=== PATIENT | female | born 1960 | race Caucasian/White ===

== ENCOUNTER 2018-04-16 05:00 | Inpatient (IN) | payer BC ==
[2018-04-14 15:08] VITALS: BMI 29.8
--- NOTE | 2018-04-16 06:51 | HP ---
History & Physical Update - History History: No Change - Physical Physical: No Change - Assessment Assessment: No Change - Plan Plan: No Change (No change in HP done)
[2018-04-16] MEDS ORDERED: LACTATED RINGERS SOLUTION 1,000 ML/1,000 ML INFUS.BAG IV SCH (07:00)
[2018-04-16] MEDS ORDERED: PHENAZOPYRIDINE HCL 100 MG TABLET (FP) PO STA (08:31)
[2018-04-16] MEDS ORDERED: ceFAZolin SODIUM 1 GM VIAL ONE ×2 (09:14→18:02)
[2018-04-16] MEDS ORDERED: BUPIVACAINE HCL/PF 0.5% (5MG/ML) 10 ML VIAL ONE (10:06)
[2018-04-16] MEDS ORDERED: ONDANSETRON 4 MG/2 ML VIAL IVPUSH PRN ×2 (10:12→13:38)
[2018-04-16] MEDS ORDERED: LACTATED RINGERS SOLUTION 1,000 ML IV SCH (10:15)
[2018-04-16] MEDS ORDERED: PHENAZOPYRIDINE HCL 100 MG TABLET (FP) ONE (10:46)
[2018-04-16] MEDS ORDERED: ceFAZolin SODIUM 1 GM VIAL IVPB ONE (11:08)
[2018-04-16] MEDS ORDERED: BUPIVACAINE HCL/PF 0.5% (5MG/ML) 10 ML VIAL IJ ONE (13:15)
[2018-04-16] MEDS ORDERED: BISACODYL 10 MG SUPP.RECT RC PRN (13:38)
--- NOTE | 2018-04-16 13:43 | OP ---
DATE OF OPERATION: 04/16/2018 PREOPERATIVE DIAGNOSES: Leiomyomatous uterus, pelvic pain, and adenomyosis. OPERATION: Laparoscopic, robotic total hysterectomy and bilateral salpingectomy. SURGEON: Esau Grant MD SURVEYOR INSTRUMENT ASSISTANT: AGATHA Valdez ANESTHESIA: General. ANESTHESIOLOGIST: Wilner Bone MD FINDINGS: Leiomyomatous uterus, approximately 12 cm in size. Bilateral ureters seen post surgery. PROCEDURE: Patient was taken to the operating room and placed in dorsal lithotomy position, prepped and draped in the usual sterile fashion. Timeout was performed in accordance with hospital regulation. Speculum was placed in the vagina. Chang catheter was inserted into the urethra, and tenaculum was placed on the anterior lip of the cervix. Cervix was then dilated to accommodate the uterine manipulator. A large uterine manipulator was inserted. Attention was then drawn to the umbilicus where an 8-mm umbilical incision was made. Veress needle was inserted into the cavity. Approximately 3-4 L of CO2 was insufflated in the cavity. Veress needle was then removed, and an 8-mm trocar was then inserted. Laparoscope and camera were then attached. Visualization revealed a leiomyomatous uterus, normal tubes, and normal ovaries and uterus approximately 12 cm in size. Two trocars were placed on the left parallel to the umbilical incision, and 8-mm incisions were made. Trocars were inserted under direct visualization. An AirSeal cannula was inserted in the upper abdomen, and under direct visualization, 2 trocars were placed on the right parallel to each other, 8 mm in size, and 8-mm trocars were then inserted under direct visualization. The trocars were then confirmed in terms of location. The da Herrera robot was then side docked to the patient's side arm, and trocars were then inserted onto the da Herrera robot. Placement was confirmed, and instruments were then placed under direct visualization. Vessel sealers were placed on the left, and tenaculum and EndoShears were placed on the right. Control of the da Herrera robot was then done at the console, and tenaculum was then used to elevate the uterus to the right side. The round ligament was identified and clamped and cut. Utero-ovarian ligaments identified and clamped and cut. Tubes were bilaterally clamped and cut. Vesicouterine reflection was then entered, and bladder was bluntly dissected out of the operative field. The same procedure was repeated on the other side. EndoShears were then used to cut the vagina away from the cervix circumferentially. All bleeding was clamped. Ureters were identified and found to have peristalsis. The uterus was then removed from the vagina and cervix, and tubes were all removed from the vagina. The 2-0 V-Loc suture was then introduced into the abdomen, and robot was then used to continue suture using the V-Loc suture, closing the vagina. Ureters were then identified and found to have peristalsis. Ovaries were noted to be normal. Hemostasis was achieved. Needle was then removed from the abdomen. Trocars were then removed. Incisions were then closed using 4-0 Biosyn suture in subcuticular fashion. Wound was washed and dressed. Patient tolerated the procedure well. Estimated blood loss: 75 mL. Pad count was noted to be normal. Abdominal sweep done. ESAU GRANT M.D. [id number]
--- NOTE | 2018-04-16 13:49 | OP ---
Operative Note - Note: Operative Date: 04/16/18 Pre-Operative Diagnosis: uterine leiomyoma Operation: robotic assisted totaly hysterctomy and bilateral salpingectomy Surgeon: Deyanira Singh Knifer Up: Stacy Chavez Anesthesiologist/BUSINESS EXECUTIVE: Grant Biggs Anesthesia: General Specimens Removed: uterus, bilateral salpingectomy Estimated Blood Loss (mls): 75 Drains, Volume Out (mls): 700 (trotter) Fluid Volume Replaced (mls): 1,400 Operative Report Dictated: Yes
--- NOTE | 2018-04-16 13:50 | SURG ---
Surgery Tiler Note Tiler: Stacy Chavez PA-C Date of Service: 04/16/18 Diagnosis: uterine leimyoma Procedure: robotic assisted total hysterectomy with bilateral salpingectomy I was present for the entirety of the operative procedure. For further detail, please refer to operative report. Visit type - Case Type Case Type: Scheduled - Emergency Emergency Visit: No - New patient This patient is new to me today: Yes Date on this admission: 04/16/18
[2018-04-16] MEDS ORDERED: CEFAZOLIN 1 GM/D5W 1 GM/50 ML BAG IVPB SCH (18:00)
[2018-04-16] MEDS ORDERED: DEXTROSE 5%-WATER - 50 ML IVPB ONE (18:02)
[2018-04-16] MEDS: CEFAZOLIN 1 GM in DEXTROSE 5%-WATER - 50 ML IVPB SCH (18:06)
[2018-04-16 20:51] LABS: ANION GAP 12 (8-16); BLOOD UREA NITROGEN 12 mg/dL (7-18); CALCIUM 8.8 mg/dL (8.5-10.1); CHLORIDE 106 mmol/L (98-107); CO2 24 mmol/L (21-32); CREATININE 0.8 mg/dL (0.55-1.02); GLUCOSE,RANDOM 169 mg/dL (74-106); POTASSIUM 4.2 mmol/L (3.5-5.1); SODIUM 142 mmol/L (136-145)
[2018-04-16 21:39] LABS: BASO % 0.1 % (0-2.0); HEMATOCRIT 35.8 % (32.4-45.2); HEMOGLOBIN 12.2 GM/dL (10.7-15.3); LYMPH % 6.4 % (8-40); MCH 28.7 pg (25.7-33.7); MCHC 34.2 g/dl (32.0-36.0); MEAN CELL VOLUME 84.1 fl (80-96); MEAN PLT VOLUME 9.3 fl (7.5-11.1); MONO % 1.9 % (3.8-10.2); NEUT % 91.6 % (42.8-82.8); PLATELET COUNT 255 K/MM3 (134-434); RBC 4.25 M/mm3 (3.60-5.2); RDW 13.5 % (11.6-15.6); WHITE BLOOD COUNT 11.3 K/mm3 (4.0-10.0)
[2018-04-16] MEDS: IBUPROFEN 800 MG/8 ML IJ IVPB PRN (21:59)
[2018-04-16] MEDS: DOCUSATE SODIUM 100 MG CAPSULE (FP) PO SCH (22:00)
[2018-04-16] MEDS: SIMETHICONE 80 MG TAB.CHEW (FP) PO PRN (22:01)
[2018-04-16 22:03] LABS: PLATELET ESTIMATE ADEQUATE
[2018-04-17] MEDS ORDERED: DEXTROSE 5%-WATER - 50 ML IVPB ONE (01:20)
[2018-04-17] MEDS ORDERED: ceFAZolin SODIUM 1 GM VIAL ONE (01:21)
[2018-04-17] MEDS: CEFAZOLIN 1 GM in DEXTROSE 5%-WATER - 50 ML IVPB SCH (01:23)
[2018-04-17 07:53] LABS: BASO % 0.2 % (0-2.0); EOS % 0.1 % (0-4.5); HEMOGLOBIN 11.5 GM/dL (10.7-15.3); LYMPH % 13.9 % (8-40); MCH 28.9 pg (25.7-33.7); MCHC 33.8 g/dl (32.0-36.0); MEAN CELL VOLUME 85.5 fl (80-96); MEAN PLT VOLUME 8.8 fl (7.5-11.1); MONO % 7.2 % (3.8-10.2); NEUT % 78.6 % (42.8-82.8); PLATELET COUNT 248 K/MM3 (134-434); RBC 3.98 M/mm3 (3.60-5.2); RDW 13.8 % (11.6-15.6); WHITE BLOOD COUNT 10.5 K/mm3 (4.0-10.0)
--- NOTE | 2018-04-17 08:14 | PN ---
Progress Note (short form) - Note Progress Note: POD#1 Pt had an episode last pm where she felt nauseated/tingling in her extremities and warm. The feeling passed in about 30 minutes and was better after getting IV fluids. This am she is tolerating a diet, small amount of flatus passed. No CP/SOB. Slight lower abd pain and scant bleeding on the vaginal pad. Vital Signs Period Temp Pulse Resp BP Sys/Landeros Pulse Ox Last 24 Hr 97.6 F-98.6 F 60-77 16-20 105-131/47-79 98-100 UOP-1500ml orange in color GEN: Appears comfortable CV:RRR Lungs: CTA b/l ABD: soft, non-distended, inc tenderness. Inc c/d/i with bandaids. LE: no calf tenderess or swelling noted b/l. Ye/SCDS in place. 5/5 dorsi/ plantar/EHL b/l CBC, BMP // 07:00 Laboratory Tests 04/16/18 19:35 Sodium 142 Potassium 4.2 Chloride 106 Carbon Dioxide 24 Anion Gap 12 BUN 12 Creatinine 0.8 Random Glucose 169 H A/P: 58 yo female s/p robotic assisted total hysterectomy/b/l salpingectomy, POD #1 Plan for possible discharge today Diet advance trotter catheter for removal this am, TOV DVT ppx with YE/SCDS/ambulation/lovenox SQ D/w Dr. Singh and plan for discharge today if she continues to tolerated her diet/pain managed and voiding
[2018-04-17 08:23] LABS: CHLORIDE 107 mmol/L (98-107); POTASSIUM 4.7 mmol/L (3.5-5.1); SODIUM 143 mmol/L (136-145)
[2018-04-17 08:30] LABS: ANION GAP 9 (8-16); BLOOD UREA NITROGEN 11 mg/dL (7-18); CALCIUM 8.9 mg/dL (8.5-10.1); CO2 27 mmol/L (21-32); CREATININE 0.7 mg/dL (0.55-1.02); GLUCOSE,RANDOM 116 mg/dL (74-106)
[2018-04-17] MEDS ORDERED: oxyCODONE HCL 5 MG TABLET PO PRN (08:30)
[2018-04-17] MEDS: SIMETHICONE 80 MG TAB.CHEW (FP) PO PRN ×2 (09:39→21:21)
[2018-04-17] MEDS: ENOXAPARIN NA (PORCINE) 40 MG/0.4 ML DISP.SYRIN SQ SCH (09:39)
[2018-04-17] MEDS: DOCUSATE SODIUM 100 MG CAPSULE (FP) PO SCH ×2 (09:39→21:21)
[2018-04-17] MEDS: IBUPROFEN 800 MG/8 ML IJ IVPB PRN (13:48)
--- NOTE | 2018-04-17 16:30 | PN ---
Progress Note (short form) - Note Progress Note: Pt unable to pass gas pt with abdominal pain and unable to go home rectal tube dulcolax given will admit bc pt could not go home
[2018-04-17] MEDS: ACETAMINOPHEN 325 MG TABLET (FP) PO PRN (21:20)
[2018-04-17] MEDS: oxyCODONE HCL 5 MG TABLET PO PRN (21:21)
[2018-04-18] MEDS: oxyCODONE HCL 5 MG TABLET PO PRN (07:35)
[2018-04-18] MEDS: SIMETHICONE 80 MG TAB.CHEW (FP) PO PRN (07:35)
[2018-04-18] MEDS: ACETAMINOPHEN 325 MG TABLET (FP) PO PRN (07:36)
[2018-04-18] MEDS: ENOXAPARIN NA (PORCINE) 40 MG/0.4 ML DISP.SYRIN SQ SCH (09:35)
[2018-04-18] MEDS: DOCUSATE SODIUM 100 MG CAPSULE (FP) PO SCH (09:35)
--- NOTE | 2018-04-18 09:53 | DS ---
"Physical Exam-LEARNING SUPPORT TEACHER Vital Signs: Vital Signs Temperature 98.3 F 04/17/18 22:00 Pulse Rate 79 04/17/18 22:00 Respiratory Rate 18 04/17/18 22:00 Blood Pressure 131/59 04/17/18 22:00 O2 Sat by Pulse Oximetry (%) 100 04/17/18 07:00 Constitutional: Yes: Well Nourished, No Distress Cardiovascular: Yes: WNL Respiratory: Yes: WNL, Regular Gastrointestinal: Yes: WNL, Normal Bowel Sounds, Soft Edema: No Wound/Incision: Yes: Dressing Removed Labs: CBC, BMP 04/17/18 07:00 04/17/18 07:00 Discharge Summary Reason For Visit: LEIOMYOMA OF UTERUS Procedures: Principal: Robotic Laparoscopic total hyterectomy Condition: Good - Instructions Diet, Activity, Other Instructions: Dr. Deyanira Singh Grease Refiner Operator discharge instructions Physical activity Resume your normal everyday activity as tolerated no heavy lifting or exercise until seen by your surgeon. You may walk unlimited kate of and climb stairs. You may resume driving the car when you feel safe and comfortable behind the wheel. No sexual activity as instructed by Dr. Singh. Wound care If you have a bandage, leave it on, and keep dry for 48-72 hours. After that time discard the outer bandage. If they are tapes on the skin under the out of bandage leave them in place. They will peel off in the next 7 to 10 days. Do Not Peel them off. You may shower the day after surgery. If there are tapes present on the skin, you may shower over them. Diet There are no dietary restrictions. Eat healthy, high-fiber foods. Drink 6 to 8 glasses of liquid each day. This will assist in keeping your bowels are regular. Pain management You may take Tylenol or acetaminophen or Ibuprofen (for example, Motrin, Advil etc.) from my pain prescription medication is ordered should be taken as prescribed for moderate to severe pain. Call Dr. Singh for any of the following: Severe pain not relieved by medication Fever of 101 or higher Excessive bleeding or drainage on dressing Inability to urinate Call the office at [phone] for an appointment in seven days. This report was requested by: Stacy Chavez | Reference #: [id number] - Home Medications Comprehensive Discharge Medication List: Ambulatory Orders Docusate Sodium [Colace -] 100 mg PO BID PRN #14 capsule 04/17/18 Oxycodone HCl/Acetaminophen [Percocet 5-325 mg Tablet] 1 - 2 tab PO Q6H PRN #30 tab MDD 8 04/17/18"
[2018-04-18 10:48] VITALS: BP 115/61; PULSE 69; TEMP 97.7
--- NOTE | 2018-04-20 16:19 | PATH ---
Surgical Pathology Report Patient Name: KEITH ALCAZAR [facility]. Rec. #: [id number] /Age/Gender: 1960 (Age: 58) / F Account: [id number] Location: [facility] OBS/CORRECTIONS SERGEANT Taken: 04/16/2018 Received: 04/16/2018 Reported: 04/20/2018 Physicians: Deyanira Singh M.D. Specimen(s) Received A: UTERUS AND CERVIX B: RIGHT FALLOPIAN TUBE C: LEFT FALLOPIAN TUBE Clinical History Leiomyoma of uterus Final Diagnosis A. UTERUS AND CERVIX, ROBOTIC ASSISTED LAPAROSCOPIC TOTAL HYSTERECTOMY: PROLIFERATIVE ENDOMETRIUM. INTRAMURAL AND SUBSEROSAL LEIOMYOMA(TA), FOCALLY HYALINIZED AND CALCIFIED. CERVIX WITHOUT SIGNIFICANT PATHOLOGIC FINDINGS. B. FALLOPIAN TUBE, RIGHT, SALPINGECTOMY: FIMBRIATED END OF FALLOPIAN TUBE WITH PARATUBAL CYST. NO FULL LUMINAL PORTION IDENTIFIED. C. FALLOPIAN TUBE, LEFT, SALPINGECTOMY: FALLOPIAN TUBE WITH PARATUBAL CYSTS (FIMBRIATED END AND FULL LUMINAL PORTION). Electronically Signed Cathleen Barnes M.D. Gross Description A. Received in formalin labeled "uterus, cervix," is a 253 g uterus with an attached cervix and no attached adnexa. The specimen measures 12.5 cm from superior to inferior, 7 cm from left to right and 7 cm from anterior to posterior. The serosa is bull-adame with focal bulging subserosal nodules. The attached cervix measures 4 cm in length and averages 3.1 cm in diameter. The ectocervix is bull-pink, smooth and glistening. The endocervix is unremarkable. The endometrial cavity measures 4.5 cm in length and 2.4 cm from cornu to cornu. The endometrium is bull-brown and averages 0.1 cm in thickness. The myometrium displays multiple intramural nodules, measuring up to 6.7 cm in greatest dimension. The cut surface of the subserosal and largest intramural nodules is focally calcified. The remaining intramural nodules are bull and rubbery with whorled architecture. No areas of hemorrhage or necrosis are identified. The remaining myometrium is bull-pink and measures up to 4 cm in thickness. Sole Cutter sections are submitted in 11 cassettes a follows: 1-anterior cervix; 2-posterior cervix; 8-8-acuxuqwo endomyometrium; 6-3-oijulkvcl endomyometrium; 7-calcified subserosal nodules, following decalcification; 8-9-largest intramural nodule, following decalcification; 82-98-yprdrbmiku intramural nodules. B. Received in formalin labeled "right fallopian tube," is a 1.7 x 1.2 x 0.6 cm portion of bull-mckeon fimbria. No fallopian tube lumen is identified. The fimbria is bisected and entirely submitted in one cassette. C. Received in formalin labeled "left fallopian tube," is a 1.7 x 1.1 x 0.6 cm portion of bull-mckeon fimbria. No fallopian tube lumen is identified. The fimbria is bisected and entirely submitted in one cassette. 04/17/2018 [facility]04/17/2018
== END 2018-04-18 10:30 | disposition home or self-care (01) | DRG 743 ==
LOC: JASUSAT 05:00 → J3W 15:57 → JASUSAT 15:58 → J3W 15:58
PROVIDERS: ADMIT Obstetrics & Gynecology; ATTEND Obstetrics & Gynecology
PROC: 0UT74ZZ Resection of Bilateral Fallopian Tubes, Percutaneous Endoscopic Approach (ICD-10-PCS; 2018-04-16)
PROC: 8E0W8CZ Robotic Assisted Procedure of Trunk Region, Via Natural or Artificial Opening Endoscopic (ICD-10-PCS; 2018-04-16)
PROC: 0UT94ZZ Resection of Uterus, Percutaneous Endoscopic Approach (ICD-10-PCS; principal; 2018-04-16 10:00)
DX: D25.9 Leiomyoma of uterus, unspecified (principal); N80.0 Endometriosis of uterus
CPT/HCPCS: 36415; 80048; 85025; 86850; 86900; 86901; 88302-TC; 88307-TC; 94010; 94760

== ENCOUNTER 2020-03-29 06:10 | Day surgery (SDC) | payer OTHER ==
[2020-03-28 11:10] VITALS: BMI 26.6
--- NOTE | 2020-03-28 14:11 | HP ---
Satellite [facility] - Chief Complaint Chief Complaint: left knee pain - Past Medical History Allergies/Adverse Reactions: Allergies Allergy/AdvReac Type Severity Reaction Status Date / Time No Known Allergies Allergy Verified 03/28/20 11:02 - Current Medications Current Medications: Home Medications Medication Instructions Recorded Acetaminophen [Tylenol] 650 mg PO PRN 03/28/20 Omeprazole 40 mg PO DAILY 03/28/20 Satellite Physical Exam - Physical Examination General Appearance: Well Nourished, Well Developed, Alert & Oriented x3 ENT: Clear Lung: Normal air movement Extremities: Other (left knee- + swelling, + ttp, decr rom, + mcmurrays, nvi) Neurological: Intact, Alert, Oriented Satellite Impression/Plan - Impression/Plan Impression: left knee internal derangement Operative Procedure: left knee arthroscopy Date to be Performed: 03/29/20
[2020-03-29] MEDS ORDERED: LIDOCAINE HCL/PF 2% SDV 5ML VIAL ONE (07:35)
[2020-03-29] MEDS ORDERED: MIDAZOLAM HCL 2 MG/2 ML SINGLE DOSE VIAL ONE (07:35)
[2020-03-29] MEDS ORDERED: PROPOFOL 20 ML ONE (07:35)
[2020-03-29] MEDS ORDERED: BUPIVACAINE HCL/PF 0.5% (5 MG/ML) 30 ML VIAL IJ ONE (08:01)
[2020-03-29] MEDS ORDERED: ceFAZolin SODIUM 1 GM VIAL IVPB ONE ×2 (08:15→08:20)
[2020-03-29] MEDS ORDERED: ceFAZolin SODIUM 1 GM VIAL ONE (08:17)
[2020-03-29] MEDS ORDERED: DEXAMETHASONE SOD PHOSPHATE 4 MG/1 ML VIAL ONE (08:19)
[2020-03-29] MEDS ORDERED: KETOROLAC TROMETHAMINE 30 MG/1 ML VIAL ONE (08:19)
--- NOTE | 2020-03-29 08:59 | OP ---
Operative Note - Note: Operative Date: 03/29/20 Pre-Operative Diagnosis: left knee medial meniscus tear Operation: left knee arthroscopy, partial medial meniscctomy, plica excision Post-Operative Diagnosis: Same as Pre-op Surgeon: Roel Whitney Stemhole Borer: Ney Owen Anesthesiologist/AUTOMOBILE ENGINE ASSEMBLER: Sary Pollard Anesthesia: General, Local Specimens Removed: shavings Estimated Blood Loss (mls): 0 Drains, Volume Out (mls): 0 Blood Volume Replaced (mls): 0 Fluid Volume Replaced (mls): 700 Operative Report Dictated: Yes
[2020-03-29] MEDS ORDERED: ONDANSETRON 4 MG/2 ML VIAL IVPUSH PRN (09:11)
[2020-03-29] MEDS ORDERED: oxyCODONE HCL 5 MG TABLET PO PRN (09:11)
[2020-03-29 11:21] VITALS: TEMP 96.9
--- NOTE | 2020-03-29 11:49 | OP ---
DATE OF OPERATION: 03/29/2020 PREOPERATIVE DIAGNOSIS: Left knee pain, medial meniscus tear. POSTOPERATIVE DIAGNOSIS: Medial meniscus tear and plica. OPERATIVE PROCEDURE: Left knee arthroscopy, partial medial meniscectomy, and plica excision. SURGEON: Roel Whitney MD ORACLE ENDECA CONSULTANT: Betsy Wallis MD SAMPLE DISTRIBUTOR: Sary Pollard, REF-DRY LUMBER GRADER DRAINS: None. COMPLICATIONS: None. SPECIMENS: Arthroscopic shavings. BLOOD LOSS: None. BLOOD GIVEN: None. FLUID REPLACEMENT: 700 mL Plasmalyte. INDICATION FOR PROCEDURE: This patient is a 60-year-old female with a preoperative diagnosis of left knee pain and a known medial meniscus tear. After understanding the potential risks, complications, alternatives, and benefits of surgical versus nonsurgical treatment, the patient elected to undergo this procedure. DESCRIPTION OF PROCEDURE: Patient was brought to the operating room, peripheral IV placed, IV sedation given. IV Ancef 2 g was given. LMA anesthesia was induced. She was placed into the supine position with ample padding throughout, including the left lower extremity in a tourniquet in the C-clamp leg mccord with Styrofoam ring. The left lower extremity was prepped and draped in sterile fashion, elevated, exsanguinated with an Esmarch bandage and tourniquet inflated to 275 mmHg. The superomedial outflow portal was established, the lateral portal was established, and arthroscope was introduced into the joint. Using a spinal needle under direct visualization, a medial portal was established and a diagnostic arthroscopy was performed. The patient was seen to have a complex tear of the posterior horn of the medial meniscus. This was debrided with the left biter, upbiter, and curved shaver, photographs taken before and after. There were only grade 1 changes on the medial femoral condyle, but otherwise the joint looked good. The intercondylar notch was explored. The ACL looked good. The lateral compartment was explored. It looked good. Lateral meniscus looked good. There was no osteoarthritis. Next our attention was turned to the patellofemoral joint. The patient had a huge complex plica with at least 2 large bands. It was excised with the upbiter and straight shaver. Photographs were taken. The plica had caused some chondromalacia and scraping wear of the femoral trochlea as well as the undersurface of the distal pole of the patella. Photographs were taken. Debridement chondroplasty was performed. The area was copiously irrigated and washed out. All instrumentation was removed, excess saline removed. Arthroscopy portals were closed with 3-0 nylon suture. The area was then washed and dried, covered with Xeroform gauze, 4 x 4 gauze, Webril, and an Jayjay bandage. Next, 20 mL of 0.5% Marcaine was introduced into the joint. Total tourniquet time was 20 minutes. There were no complications during the case. The patient tolerated the procedure quite well and was brought to ambulatory recovery in a stable condition. BETSY WALLIS M.D. [id number]
[2020-03-29 12:22] VITALS: BP 118/65; PULSE 68
--- NOTE | 2020-03-30 12:18 | PATH ---
Surgical Pathology Report Patient Name: KEITH ALCAZAR [facility]. Rec. #: [id number] /Age/Gender: 1960 (Age: 60) / F Account: [id number] Location: [facility] SURGICAL Taken: 03/29/2020 Received: 03/29/2020 Reported: 03/30/2020 Physicians: Mamie Fontana M.D. Specimen(s) Received LEFT KNEE SHAVINGS Clinical History Left knee tear Final Diagnosis LEFT KNEE SHAVINGS: FIBROADIPOSE TISSUE AND SYNOVIAL TISSUE WITH FOCAL REACTIVE CHANGE. Electronically Signed Nidhi Salcido M.D. Gross Description Received in formalin, labeled "left knee shavings," is a 6.5 x 4.5 x 0.4 cm. aggregate of bull-yellow soft tissue fragments. A marketing sales representative portion is submitted in one cassette. /03/29/2020 [place]03/29/2020
== END 2020-03-29 12:23 | disposition home or self-care (01) ==
LOC: JASU-SURG 06:10
PROVIDERS: ATTEND Orthopaedic Surgery
PROC: 0SBD4ZZ Excision of Left Knee Joint, Percutaneous Endoscopic Approach (ICD-10-PCS; principal; 2020-03-29 08:00)
DX: S83.232A Complex tear of medial meniscus, current injury, left knee, initial encounter (principal); X58.XXXA Exposure to other specified factors, initial encounter; Y93.9 Activity, unspecified; Y92.9 Unspecified place or not applicable; Y99.9 Unspecified external cause status; M67.52 Plica syndrome, left knee
CPT/HCPCS: 88304-TC; 94760

== ENCOUNTER 2020-06-27 07:46 | Emergency (ER) | payer OTHER ==
[2020-06-27 07:52] VITALS: BP 135/99; PULSE 86; TEMP 97.7; BMI 27.1
[2020-06-27] MEDS ORDERED: ACETAMINOPHEN 500 MG TABLET (FP) PO ONE (08:05)
[2020-06-27] MEDS ORDERED: MAG HYDROX/AL HYDROX/SIMETH -MYLANTA- ORAL SUSPENSION PO ONE (08:06)
[2020-06-27] MEDS ORDERED: ONDANSETRON 4 MG/2 ML VIAL IVPUSH ONE (08:06)
[2020-06-27] MEDS ORDERED: FAMOTIDINE 20 MG/50 ML IVPB 20 MG/50 ML MG IVPB ONE ×2 (08:06→09:00)
--- NOTE | 2020-06-27 08:06 | PDOC ---
History of Present Illness <Tristin Keeneele - Last Filed: 06/27/20 09:16> - General History Source: Patient - History of Present Illness Timing/Duration: reports: constant Quality: reports: moderate Abdominal Pain Onset Location: reports: RUQ, epigastric, flank <SadieCari - Last Filed: 06/27/20 11:15> - General Chief Complaint: Pain Stated Complaint: PAIN VOMITING Time Seen by Provider: 06/27/20 07:53 Past History <Woody Keene - Last Filed: 06/27/20 09:16> - Medical History Anemia: No Asthma: No Cancer: No Cardiac Disorders: Yes (HX OF CARDIAC ARREST) CVA: No COPD: No CHF: No Dementia: No Diabetes: No GI Disorders: No Disorders: No HTN: No Hypercholesterolemia: Yes Liver Disease: Yes (fatty liver) Seizures: No Thyroid Disease: No - Surgical History Abdominal Surgery: No Appendectomy: No Cardiac Surgery: No Cholecystectomy: No Lung Surgery: No Neurologic Surgery: No Orthopedic Surgery: Yes (FX LEFT ARM WITH HARDWARE) - Immunization History Immunization Up to Date: No - Psycho-Social/Smoking History Smoking Status: No Smoking History: Never smoked Have you smoked in the past 12 months: No Number of Cigarettes Smoked Daily: 0 - Substance Abuse Hx (Audit-C & DAST Scrn) How often the patient has a drink containing alcohol: Never Score: In Men: 4 or > Positive; In Women: 3 or > Positive: 0 Screen Result (Pos requires Nsg. Audit-10AR): Negative In the last yr the pt used illegal drug/Rx for NonMed reason: No Score: Yes response is considered Positive: 0 Screen Result (Positive result requires Nsg. DAST-10): Negative <Cari Noel - Last Filed: 06/27/20 11:15> - Medical History Allergies/Adverse Reactions: Allergies Allergy/AdvReac Type Severity Reaction Status Date / Time No Known Allergies Allergy Verified 06/27/20 07:47 Home Medications: Ambulatory Orders Acetaminophen [Tylenol] 650 mg PO PRN 03/28/20 Omeprazole 40 mg PO DAILY 03/28/20 Oxycodone HCl/Acetaminophen [Percocet 5-325 mg Tablet] 1 tab PO Q6H #10 tablet MDD 4 03/29/20 Famotidine [Pepcid] 20 mg PO BID #28 tablet 06/27/20 Mag Hydrox/Al Hydrox/Simeth [Mylanta Suspension -] 30 ml PO Q6H #1 bottle 06/27/20 Sucralfate [Carafate -] 1 gm PO QID #54 tablet 06/27/20 Review of Systems - Review of Systems Constitutional: No: Chills, Fever Respiratory: No: Shortness of Breath Cardiac (ROS): No: Chest Pain ABD/GI: Yes: Nausea, Vomiting. No: Blood Streaked Bowels, Constipated, Diarrhea, Rectal Bleeding, Tarry Stools : Yes: Flank Pain. No: Dysuria <Cari Noel - Last Filed: 06/27/20 11:15> *Physical Exam - Vital Signs Last Vital Signs Temp Pulse Resp BP Pulse Ox 97.7 F 86 20 135/99 100 06/27/20 07:48 06/27/20 07:48 06/27/20 07:48 06/27/20 07:48 06/27/20 07:48 <Woody Keene - Last Filed: 06/27/20 09:16> - Vital Signs Last Vital Signs Temp Pulse Resp BP Pulse Ox 97.7 F 86 20 135/99 100 06/27/20 07:48 06/27/20 07:48 06/27/20 07:48 06/27/20 07:48 06/27/20 07:48 - Physical Exam General Appearance: Yes: Appropriately Dressed, Mild Distress HEENT: positive: Normal Voice Neck: positive: Supple Respiratory/Chest: positive: Lungs Clear, Normal Breath Sounds. negative: Respiratory Distress Cardiovascular: positive: Regular Rate, S1, S2 Gastrointestinal/Abdominal: positive: Normal Bowel Sounds, Tender (minimal ttp to RUQ and epigastrium, neg murpheys), Soft. negative: Distended, Guarding, Rebound Musculoskeletal: negative: CVA Tenderness Integumentary: positive: Dry, Warm Neurologic: positive: Fully Oriented, Alert, Normal Mood/Affect <ElbingCari - Last Filed: 06/27/20 11:15> Heart Score/ECG Review #1 ECG reviewed & interpreted by me at: 09:11 General ECG Interpretation: Sinus Rhythm, Normal Rate (64), Normal Intervals (qtc 447, irbbb qrs 104), No acute ischemic changes <Woody Keene - Last Filed: 06/27/20 09:16> ED Treatment Course - Medications Given in the ED: ED Medications Discontinued Medications Generic Name Dose Route Start Last Admin Trade Name Dale PRN Reason Stop Dose Admin Acetaminophen 1,000 mg 06/27/20 08:05 06/27/20 08:58 Tylenol - PO 06/27/20 08:06 Not Given ONCE ONE Al Hydroxide/Mg Hydroxide 30 ml 06/27/20 08:06 06/27/20 08:57 Mylanta Suspension - PO 06/27/20 08:07 30 ml ONCE ONE Administration Famotidine/Sodium Chloride 20 mg in 50 mls @ 100 mls/hr 06/27/20 08:06 06/27/20 08:58 Pepcid 20 Mg Premixed Ivpb - IVPB 06/27/20 08:35 100 mls/hr ONCE ONE Administration Ondansetron HCl 4 mg 06/27/20 08:06 06/27/20 08:58 Zofran Injection IVPUSH 06/27/20 08:07 4 mg ONCE ONE Administration Sucralfate 1 gm 06/27/20 08:09 06/27/20 08:58 Carafate - PO 06/27/20 08:10 1 gm ONCE ONE Administration <Woody Keene - Last Filed: 06/27/20 09:16> - LABORATORY CBC & Chemistry Diagram: 06/27/20 09:00 06/27/20 09:00 <Cari Noel - Last Filed: 06/27/20 11:15> Medical Decision Making - Medical Decision Making 06/27/20 08:01 60 yo F, h/o GERD, gastric ulcer, no longer on omeprazole, here with RUQ/right flank pain that started several days ago. Unable to describe, 6 out of 10 and no association with food. Has had 2 episodes of nausea and vomiting since yesterday. No hematemesis, change in BM, melena, BRBPR, fever, chills, CP or SOB. Patient also complaining of "feeling acid in my chest" x 1 week consistent with her GERD, worse w/ po intake. States she took lfik-cla-gdewrcd meds with no relief see exam RUQ/flank pain R/o biliary colic vs GERD or gastric ulcer flare given above hx of same, less likely pancreatitis, renal colic, uti/pyelo or cardiac Exam only remarkable for minimal ttp to RUQ/epigastrium -symptomatic control -labs -US -reassess 06/27/20 08:16 06/27/20 11:14 Labs and US unremarkable. Pt reports feeling better. Will dc w/ meds and GI referral <Cari Noel - Last Filed: 06/27/20 11:15> Discharge <Woody Keene - Last Filed: 06/27/20 09:16> - Discharge Information Problems reviewed: Yes <Cari Noel - Last Filed: 06/27/20 11:15> - Discharge Information Clinical Impression/Diagnosis: Upper abdominal pain Condition: Improved Disposition: HOME - Additional Discharge Information Prescriptions: Sucralfate [Carafate -] 1 gm PO QID #54 tablet Mag Hydrox/Al Hydrox/Simeth [Mylanta Suspension -] 30 ml PO Q6H #1 bottle Famotidine [Pepcid] 20 mg PO BID #28 tablet - Follow up/Referral Referrals: Michelet Austin [Primary Care Provider] - - Patient Discharge Instructions Additional Instructions: The cause of your symptoms might be related to you GERD of ulcer take medications as directed but you will need to follow with Dr Winkler this week for further evaluation and management
[2020-06-27] MEDS ORDERED: SUCRALFATE 1 GM TABLET (FP) PO ONE (08:09)
[2020-06-27] MEDS ORDERED: SUCRALFATE 1 GM TABLET (FP) ONE (08:13)
[2020-06-27] MEDS ORDERED: MAG HYDROX/AL HYDROX/SIMETH 30 ML UNIT-DOSE CUP ONE ×2 (08:13→10:29)
--- OUTSIDE RECORDS SUMMARY | 2020-06-27 09:21 | XMS ---
:1960 Author Organization [facility] Support Name Relationship Address Phone LOPEZ ALCAZAR DAUGHTER [address] [facility] [place] [phone] UE, UNEMPLOYED Unavailable Unavailable Unavailable UE Unavailable Unavailable Unavailable VICTORIA ALCAZAR [address] [place] [address] Re-disclosure Warning The records that you are about to access may contain information from federally- assisted alcohol or drug abuse programs. If such information is present, then the following federally mandated warning applies: This information has been disclosed to you from records protected by federal confidentiality rules (42 CFR part 2). The federal rules prohibit you from making any further disclosure of this information unless further disclosure is expressly permitted by the written consent of the person to whom it pertains or as otherwise permitted by 42 CFR part 2. A general authorization for the release of medical or other information is NOT sufficient for this purpose. The Federal rules restrict any use of the information to criminally investigate or prosecute any alcohol or drug abuse patient.The records that you are about to access may contain highly sensitive health information, the redisclosure of which is protected by Article 27-F of the [facility] Public Health law. If you continue you may haveaccess to information: Regarding HIV / AIDS; Provided by facilities licensed or operated by the [facility] Office of Mental Health; or Provided by the [facility] Office for People With Developmental Disabilities. If such information is present, then the following [facility] mandated warning applies: This information has been disclosed to you from confidential records which are protected by state law. State law prohibits you from making any further disclosure of this information without the specific written consent of the person to whom it pertains, or as otherwise permitted by law. Any unauthorized further disclosure in violation of state law may result in a fine or longterm sentence or both. A general authorization for the release of medical or other information is NOT sufficient authorization for further disclosure. Insurance Providers Payer name Policy type / Policy ID Covered Covered libertarian's Policy Plan Coverage type libertarian ID relationship to Flynn Information flynn [employer] HMO [id number] OT [id number] 3 [employer] HMO [id number] OT [id number] 3 [employer] HMO [id number] SP [id number] 3 Results ID Date Data Source [id number] 05/30/2020 03:36:00 PM EDT [facility] Name Value Range Interpretation Description Data Sup porting Code Source(s) Document(s ) SARS [facility] coronavirus 2 RNA This lab was ordered by [facility] and reported by [facility]. ID Date Data Source [id number] 03/24/2020 11:45:00 AM EDT [facility] Name Value Range Interpretation Description Data Sup porting Code Source(s) Document(s ) SARS [facility] CORONAVIRUS 2 RNA This lab was ordered by [facility] and reported by [facility]. ID Date Data Source [id number] 03/20/2020 12:22:00 PM EDT [facility] Name Value Range Interpretation Description Data Sup porting Code Source(s) Document(s ) SARS [facility] CORONAVIRUS 2 RNA This lab was ordered by [facility] and reported by [facility]. Procedure
[2020-06-27 09:36] LABS: BASO % 0.4 % (0-2.0); EOS % 0.8 % (0-4.5); HEMATOCRIT 40.6 % (32.4-45.2); HEMOGLOBIN 14.1 GM/dL (10.7-15.3); LYMPH % 25.1 % (8-40); MCH 29.3 pg (25.7-33.7); MCHC 34.8 g/dl (32.0-36.0); MEAN CELL VOLUME 84.3 fl (80-96); MEAN PLT VOLUME 8.8 fl (7.5-11.1); MONO % 4.7 % (3.8-10.2); PLATELET COUNT 286 K/MM3 (134-434); RBC 4.81 M/mm3 (3.60-5.2); RDW 14.5 % (11.6-15.6); WHITE BLOOD COUNT 8.6 K/mm3 (4.0-10.0)
[2020-06-27 10:02] LABS: ALBUMIN 4.3 g/dl (3.4-5.0); BILIRUBIN,TOTAL 0.5 mg/dL (0.2-1); BLOOD UREA NITROGEN 5.9 mg/dL (7-18); CALCIUM 9.5 mg/dL (8.5-10.1); CREATININE 0.7 mg/dL (0.55-1.3); POTASSIUM 4.2 mmol/L (3.5-5.1); TOT PROT 8.4 g/dl (6.4-8.2)
[2020-06-27] MEDS ORDERED: morphine CARPU-JECT 4 MG/1 ML DISP.SYRIN IVPUSH ONE (10:20)
[2020-06-27] MEDS ORDERED: MAG HYDROX/ALH/SMC/DPHA/LIDO 240 ML MOUTHWASH MM ONE (10:20)
[2020-06-27] MEDS ORDERED: morphine SULFATE 4 MG/ML VIAL ONE (10:28)
[2020-06-27 10:32] LABS: EPI CELLS 8 /uL (0-25.1); HYALINE CASTS 0 /uL (0-3.1); PH,URINE >= 9.0 (5.0-8.0); URINE APPEARANCE CLOUDY; URINE BACTERIA 12 /uL (0-1359); URINE BILIRUBIN NEGATIVE (NEGATIVE); URINE COLOR YELLOW; URINE GLUCOSE (UA) NEGATIVE (NEGATIVE); URINE KETONE NEGATIVE (NEGATIVE); URINE LEUK ESTERASE TRACE (NEGATIVE); URINE NITRITE NEGATIVE (NEGATIVE); URINE PROTEIN NEGATIVE (NEGATIVE); URINE RBC 8 /uL (0-23.9); URINE UROBILINOGEN 0.2 mg/dL (0.2-1.0); URINE WBC 5 /uL (0-25.8)
--- NOTE | 2020-06-27 14:46 | EKG ---
Test Reason : Blood Pressure : / mmHG Vent. Rate : 064 BPM Atrial Rate : 064 BPM P-R Int : 130 ms QRS Dur : 104 ms QT Int : 434 ms P-R-T Axes : 065 -05 024 degrees QTc Int : 447 ms NORMAL SINUS RHYTHM INCOMPLETE RIGHT BUNDLE BRANCH BLOCK BORDERLINE ECG WHEN COMPARED WITH ECG OF 01-DEC-2015 09:46, T WAVE AMPLITUDE HAS DECREASED IN ANTERIOR LEADS Confirmed by MD AGUEDA, BLAKE ([id number]) on 06/27/2020 2:45:41 PM Referred By: Confirmed By:BLAKE ROMEO MD
== END 2020-06-27 11:22 | disposition home or self-care (01) ==
LOC: JER 07:46
PROC: 3E033NZ Introduction of Analgesics, Hypnotics, Sedatives into Peripheral Vein, Percutaneous Approach (ICD-10-PCS; principal; 2020-06-27)
PROC: 3E033GC Introduction of Other Therapeutic Substance into Peripheral Vein, Percutaneous Approach (ICD-10-PCS; 2020-06-27)
DX: R10.10 Upper abdominal pain, unspecified (principal)
CPT/HCPCS: 36415; 76705-TC; 80053; 81003; 83690; 85025; 93005; 93010; 99285-25

== ENCOUNTER 2023-05-24 16:24 | Inpatient (IN) | payer OTHER ==
[2023-05-24 17:09] VITALS: BMI 23.8
[2023-05-24] MEDS ORDERED: ACETAMINOPHEN 325 MG TABLET (FP) PO ONE (17:56)
[2023-05-24] MEDS ORDERED: LACTATED RINGERS SOLUTION 1000 ML INFUS.BAG IV ONE (18:00)
[2023-05-24] MEDS ORDERED: ACETAMINOPHEN 325 MG TABLET (FP) ONE (18:17)
[2023-05-24] MEDS ORDERED: AZITHROMYCIN IVPB 500 MG in DEXTROSE 5%-WATER - 250 ML IVPB ONE (18:43)
[2023-05-24 18:55] LABS: BASO % 0.2 % (0-2.0); HEMATOCRIT 37.3 % (32.4-45.2); HEMOGLOBIN 13.1 GM/dL (10.7-15.3); LYMPH % 9.4 % (8-40); MCHC 35.2 g/dl (32.0-36.0); MEAN CELL VOLUME 82.6 fl (80-96); MEAN PLT VOLUME 8.4 fl (7.5-11.1); MONO % 9.7 % (3.8-10.2); NEUT % 80.7 % (42.8-82.8); PLATELET COUNT 259 10^3/uL (134-434); RBC 4.52 M/mm3 (3.60-5.2); RDW 14.4 % (11.6-15.6); WHITE BLOOD COUNT 9.9 K/mm3 (4.0-10.0)
[2023-05-24 18:56] LABS: POTASSIUM 3.4 mmol/L (3.5-5.1)
[2023-05-24] MEDS ORDERED: CEFTRIAXONE 1 GM/50 ML BAG ONE (18:56)
[2023-05-24 18:58] LABS: CALCIUM 9.1 mg/dL (8.5-10.1)
[2023-05-24 18:59] LABS: ALBUMIN 3.6 g/dl (3.4-5.0); BLOOD UREA NITROGEN 8.3 mg/dL (7-18)
[2023-05-24] MEDS ORDERED: POTASSIUM CHLORIDE TABS 20 MEQ TABLET.ER (FP) PO ONE ×2 (19:01→19:11)
[2023-05-24 19:02] LABS: CREATININE 0.8 mg/dL (0.55-1.3); INR 1.37 (0.83-1.09); PROTHROMBIN TIME (PATIENT) 15.8 SEC (9.7-13.0)
[2023-05-24 19:03] LABS: BILIRUBIN,TOTAL 0.7 mg/dL (0.2-1)
[2023-05-24 19:04] LABS: TOT PROT 7.9 g/dl (6.4-8.2)
[2023-05-24 19:05] LABS: ACTIVATED PTT 35.7 SECONDS (25.2-36.5)
[2023-05-24] MEDS ORDERED: AZITHROMYCIN IVPB 500 MG/250 ML BAG IVPB ONE ×2 (19:12→19:38)
[2023-05-24 19:24] LABS: ANISOCYTOSIS 0; MACROCYTOSIS 0
[2023-05-24 20:01] LABS: PH,URINE 6.5 (5.0-8.0); URINE APPEARANCE CLEAR; URINE BILIRUBIN NEGATIVE (NEGATIVE); URINE COLOR YELLOW; URINE GLUCOSE (UA) NEGATIVE (NEGATIVE); URINE KETONE NEGATIVE (NEGATIVE); URINE LEUK ESTERASE NEGATIVE (NEGATIVE); URINE NITRITE NEGATIVE (NEGATIVE); URINE PROTEIN NEGATIVE (NEGATIVE); URINE UROBILINOGEN 0.2 mg/dL (0.2-1.0)
[2023-05-24] MEDS ORDERED: ACETAMINOPHEN 325 MG TABLET (FP) PO PRN (21:18)
[2023-05-24] MEDS ORDERED: SODIUM CHLORIDE 1,000 ML IV SCH (21:30)
[2023-05-25] MEDS ORDERED: BENZOCAINE/MENTHOL (CHLORASEPTIC ) LOZENGE MM PRN (01:26)
[2023-05-25] MEDS ORDERED: LORATADINE 10 MG TABLET PO PRN (01:30)
[2023-05-25] MEDS ORDERED: ALBUTEROL SO4 HFA INHALER IH PRN (01:33)
[2023-05-25] MEDS: guaiFENesin/D-METHORPHAN TAB.ER.12H PO SCH ×2 (01:54→09:18)
[2023-05-25] MEDS ORDERED: LORATADINE 10 MG TABLET ONE (01:57)
[2023-05-25] MEDS ORDERED: ALBUTEROL SO4 HFA INHALER IH ONE (01:57)
[2023-05-25 06:43] LABS: HEMATOCRIT 34.3 % (32.4-45.2); HEMOGLOBIN 11.7 GM/dL (10.7-15.3); MCH 28.6 pg (25.7-33.7); MEAN CELL VOLUME 83.9 fl (80-96); MEAN PLT VOLUME 9.1 fl (7.5-11.1); PLATELET COUNT 236 10^3/uL (134-434); RBC 4.09 M/mm3 (3.60-5.2); RDW 14.2 % (11.6-15.6); WHITE BLOOD COUNT 8.7 K/mm3 (4.0-10.0)
[2023-05-25 06:57] LABS: POTASSIUM 4.3 mmol/L (3.5-5.1)
[2023-05-25 07:00] LABS: CALCIUM 8.6 mg/dL (8.5-10.1)
[2023-05-25 07:01] LABS: BLOOD UREA NITROGEN 7.3 mg/dL (7-18); MAGNESIUM 1.7 mg/dL (1.8-2.4)
[2023-05-25 07:04] LABS: CREATININE 0.7 mg/dL (0.55-1.3); PHOSPHOROUS 1.8 mg/dL (2.5-4.9)
[2023-05-25 07:05] LABS: BILIRUBIN,TOTAL 0.8 mg/dL (0.2-1); TOT PROT 6.9 g/dl (6.4-8.2)
[2023-05-25] MEDS ORDERED: ACETAMINOPHEN INJECTION 100 ML IVPB ONE ×2 (07:50→14:40)
[2023-05-25] MEDS: ACETAMINOPHEN 1000 MG/100 ML BAG IVPB PRN ×2 (07:56→14:39)
[2023-05-25 08:58] LABS: ANISOCYTOSIS 0; HELMET CELLS 0; HOWELL-JOLLY BODIES 0; MACROCYTOSIS 0; OVALOCYTE 0; ROULEAU 0; SICKELED CELLS 0; TARGET CELLS 0; TEAR DROP CELLS 0; TOXIC GRANULATION 0
[2023-05-25] MEDS ORDERED: OSELTAMIVIR PHOSPHATE 75 MG CAPSULE ONE ×2 (09:45→22:08)
[2023-05-25] MEDS: OSELTAMIVIR PHOSPHATE 75 MG CAPSULE PO SCH ×2 (09:47→23:17)
[2023-05-25] MEDS ORDERED: MAGNESIUM SULF 50% (8.12 MEQ/2 ML-1 GM VIAL) IVPB ONE (10:09)
[2023-05-25] MEDS ORDERED: MAGNESIUM 1GM/D5W - 1 GM/100 ML IVPB IVPB ONE (10:22)
[2023-05-25] MEDS ORDERED: oxyCODONE HCL 5 MG TABLET PO PRN (13:25)
[2023-05-25] MEDS ORDERED: CEFTRIAXONE 1 GM/50 ML BAG ONE (13:34)
[2023-05-25] MEDS: PANTOPRAZOLE 40 MG TABLET PO SCH (13:36)
[2023-05-25] MEDS: CEFTRIAXONE 1 GM in DEXTROSE 5%-WATER - 50 ML IVPB SCH (13:54)
[2023-05-25] MEDS ORDERED: AZITHROMYCIN IVPB 500 MG/250 ML BAG IVPB ONE (14:26)
[2023-05-25] MEDS: AZITHROMYCIN IVPB 500 MG/250 ML BAG IVPB SCH (14:38)
[2023-05-25] MEDS ORDERED: NAPH,MB-DB/K PH,MBDB POWDER PACKET ONE ×3 (14:46→22:08)
[2023-05-25] MEDS ORDERED: MAGNESIUM OXIDE 400 MG TABLET (FP) ONE (14:46)
[2023-05-25] MEDS: NAPH,MB-DB/K PH,MBDB POWDER PACKET PO SCH ×2 (14:48→23:17)
[2023-05-25] MEDS ORDERED: MAGNESIUM OXIDE 400 MG TABLET (FP) PO ONE (15:00)
[2023-05-25] MEDS ORDERED: guaiFENesin/CODEINE 10 ML UNIT-DOSE CUPS PO PRN (15:07)
[2023-05-25] MEDS ORDERED: ALBUTEROL SO4 2.5/IPRATROPIUM 0.5 INH SOL 3 ML VIAL.NEB. NEB ONE ×2 (16:09→22:08)
[2023-05-25] MEDS: ALBUTEROL SO4 2.5/IPRATROPIUM 0.5 INH SOL 3 ML VIAL.NEB. NEB SCH ×2 (16:11→23:17)
[2023-05-25] MEDS ORDERED: HEPARIN NA (PORCINE) 5,000 UNITS/ML 1ML VIAL ONE (22:08)
[2023-05-25] MEDS ORDERED: ACETAMINOPHEN 325 MG TABLET (FP) ONE (23:12)
[2023-05-25] MEDS: ACETAMINOPHEN 325 MG TABLET (FP) PO PRN (23:16)
[2023-05-25] MEDS: HEPARIN NA (PORCINE) 5,000 UNITS/ML 1ML VIAL SQ SCH (23:17)
[2023-05-26] MEDS ORDERED: oxyCODONE HCL 5 MG TABLET ONE (01:23)
[2023-05-26] MEDS ORDERED: NAPH,MB-DB/K PH,MBDB POWDER PACKET ONE (06:12)
[2023-05-26] MEDS: NAPH,MB-DB/K PH,MBDB POWDER PACKET PO SCH ×2 (07:16→15:54)
[2023-05-26 08:38] LABS: POTASSIUM 4.1 mmol/L (3.5-5.1)
[2023-05-26 08:47] LABS: CALCIUM 8.6 mg/dL (8.5-10.1)
[2023-05-26 08:48] LABS: ALBUMIN 2.7 g/dl (3.4-5.0); BLOOD UREA NITROGEN 6.1 mg/dL (7-18); MAGNESIUM 2.2 mg/dL (1.8-2.4)
[2023-05-26 08:51] LABS: CREATININE 0.5 mg/dL (0.55-1.3)
[2023-05-26 08:52] LABS: PHOSPHOROUS 2.6 mg/dL (2.5-4.9); TOT PROT 6.6 g/dl (6.4-8.2)
[2023-05-26 08:53] LABS: BILIRUBIN,TOTAL 0.9 mg/dL (0.2-1)
[2023-05-26] MEDS ORDERED: ALBUTEROL SO4 2.5/IPRATROPIUM 0.5 INH SOL 3 ML VIAL.NEB. NEB ONE ×3 (09:07→22:03)
[2023-05-26] MEDS ORDERED: OSELTAMIVIR PHOSPHATE 75 MG CAPSULE ONE ×2 (09:47→22:03)
[2023-05-26] MEDS ORDERED: CEFTRIAXONE 1 GM/50 ML BAG ONE (09:47)
[2023-05-26] MEDS ORDERED: PANTOPRAZOLE 40 MG TABLET PO ONE (09:47)
[2023-05-26] MEDS ORDERED: HEPARIN NA (PORCINE) 5,000 UNITS/ML 1ML VIAL ONE ×2 (09:47→22:03)
[2023-05-26] MEDS ORDERED: AZITHROMYCIN IVPB 500 MG/250 ML BAG IVPB ONE (09:48)
[2023-05-26] MEDS: ALBUTEROL SO4 2.5/IPRATROPIUM 0.5 INH SOL 3 ML VIAL.NEB. NEB SCH ×4 (10:01→22:11)
[2023-05-26] MEDS: PANTOPRAZOLE 40 MG TABLET PO SCH (10:02)
[2023-05-26] MEDS: HEPARIN NA (PORCINE) 5,000 UNITS/ML 1ML VIAL SQ SCH ×2 (10:02→22:12)
[2023-05-26] MEDS: OSELTAMIVIR PHOSPHATE 75 MG CAPSULE PO SCH ×2 (10:03→22:12)
[2023-05-26] MEDS: CEFTRIAXONE 1 GM in DEXTROSE 5%-WATER - 50 ML IVPB SCH (11:23)
[2023-05-26] MEDS ORDERED: guaiFENesin/CODEINE 5 ML UNIT-DOSE CUPS PO ONE (11:30)
[2023-05-26] MEDS: AZITHROMYCIN IVPB 500 MG/250 ML BAG IVPB SCH (11:35)
[2023-05-26] MEDS ORDERED: ACETAMINOPHEN 325 MG TABLET (FP) ONE (22:35)
[2023-05-26] MEDS: ACETAMINOPHEN 325 MG TABLET (FP) PO PRN (22:36)
[2023-05-27] MEDS ORDERED: CEFTRIAXONE 1 GM/50 ML BAG ONE (10:15)
[2023-05-27] MEDS: ALBUTEROL SO4 2.5/IPRATROPIUM 0.5 INH SOL 3 ML VIAL.NEB. NEB SCH ×3 (10:22→20:10)
[2023-05-27] MEDS: HEPARIN NA (PORCINE) 5,000 UNITS/ML 1ML VIAL SQ SCH ×2 (10:22→22:16)
[2023-05-27] MEDS: OSELTAMIVIR PHOSPHATE 75 MG CAPSULE PO SCH ×2 (10:22→22:16)
[2023-05-27] MEDS: PANTOPRAZOLE 40 MG TABLET PO SCH (10:22)
[2023-05-27] MEDS: CEFTRIAXONE 1 GM in DEXTROSE 5%-WATER - 50 ML IVPB SCH (10:22)
[2023-05-27] MEDS ORDERED: AZITHROMYCIN IVPB 500 MG/250 ML BAG IVPB ONE (10:44)
[2023-05-27] MEDS ORDERED: methylPREDNISolone NA SUCC 40 MG/1 ML VIAL IVPUSH ONE (10:45)
[2023-05-27] MEDS: AZITHROMYCIN IVPB 500 MG/250 ML BAG IVPB SCH (10:53)
[2023-05-27] MEDS ORDERED: methylPREDNISolone NA SUCC 40 MG/1 ML VIAL ONE (11:46)
[2023-05-27 20:19] LABS: POTASSIUM 3.8 mmol/L (3.5-5.1)
[2023-05-27 20:20] LABS: CALCIUM 9.2 mg/dL (8.5-10.1)
[2023-05-27 20:21] LABS: ALBUMIN 3.1 g/dl (3.4-5.0); BLOOD UREA NITROGEN 9.2 mg/dL (7-18)
[2023-05-27 20:25] LABS: CREATININE 0.7 mg/dL (0.55-1.3)
[2023-05-27 20:26] LABS: BILIRUBIN,TOTAL 0.3 mg/dL (0.2-1); TOT PROT 7.5 g/dl (6.4-8.2)
[2023-05-28] MEDS: guaiFENesin/CODEINE 10 ML UNIT-DOSE CUPS PO PRN ×2 (05:43→21:11)
[2023-05-28] MEDS: ALBUTEROL SO4 2.5/IPRATROPIUM 0.5 INH SOL 3 ML VIAL.NEB. NEB SCH ×4 (07:53→20:28)
[2023-05-28 09:40] LABS: HEMATOCRIT 33.8 % (32.4-45.2); HEMOGLOBIN 11.5 GM/dL (10.7-15.3); MCH 28.3 pg (25.7-33.7); MEAN CELL VOLUME 83.4 fl (80-96); MEAN PLT VOLUME 8.3 fl (7.5-11.1); PLATELET COUNT 397 10^3/uL (134-434); RBC 4.05 M/mm3 (3.60-5.2); RDW 15.1 % (11.6-15.6); WHITE BLOOD COUNT 12.8 K/mm3 (4.0-10.0)
[2023-05-28 10:00] LABS: POTASSIUM 4.1 mmol/L (3.5-5.1)
[2023-05-28] MEDS: HEPARIN NA (PORCINE) 5,000 UNITS/ML 1ML VIAL SQ SCH ×2 (10:12→21:11)
[2023-05-28] MEDS: OSELTAMIVIR PHOSPHATE 75 MG CAPSULE PO SCH ×2 (10:12→21:11)
[2023-05-28] MEDS: CEFTRIAXONE 1 GM in DEXTROSE 5%-WATER - 50 ML IVPB SCH (10:12)
[2023-05-28] MEDS: PANTOPRAZOLE 40 MG TABLET PO SCH (10:12)
[2023-05-28 10:23] LABS: BILIRUBIN,TOTAL 0.6 mg/dL (0.2-1)
[2023-05-28 10:33] LABS: BLOOD UREA NITROGEN 9.7 mg/dL (7-18); CALCIUM 9.4 mg/dL (8.5-10.1)
[2023-05-28 10:36] LABS: CREATININE 0.6 mg/dL (0.55-1.3)
[2023-05-28 10:37] LABS: TOT PROT 7.4 g/dl (6.4-8.2)
[2023-05-28] MEDS: AZITHROMYCIN IVPB 500 MG/250 ML BAG IVPB SCH (10:58)
[2023-05-28] MEDS ORDERED: methylPREDNISolone NA SUCC 40 MG/1 ML VIAL IVPUSH SCH (15:00)
[2023-05-28 21:51] VITALS: TEMP 98.3
[2023-05-28] MEDS: methylPREDNISolone NA SUCC 40 MG/1 ML VIAL IVPUSH SCH (22:51)
[2023-05-29] MEDS: methylPREDNISolone NA SUCC 40 MG/1 ML VIAL IVPUSH SCH (06:14)
[2023-05-29] MEDS: guaiFENesin/CODEINE 10 ML UNIT-DOSE CUPS PO PRN (06:20)
[2023-05-29 07:02] VITALS: BP 114/67; PULSE 69; RESP 16
[2023-05-29] MEDS: ALBUTEROL SO4 2.5/IPRATROPIUM 0.5 INH SOL 3 ML VIAL.NEB. NEB SCH ×2 (07:31→11:07)
[2023-05-29] MEDS: CEFTRIAXONE 1 GM in DEXTROSE 5%-WATER - 50 ML IVPB SCH (10:40)
[2023-05-29] MEDS: HEPARIN NA (PORCINE) 5,000 UNITS/ML 1ML VIAL SQ SCH (10:40)
[2023-05-29] MEDS: OSELTAMIVIR PHOSPHATE 75 MG CAPSULE PO SCH (10:41)
[2023-05-29] MEDS: PANTOPRAZOLE 40 MG TABLET PO SCH (10:41)
[2023-05-29] MEDS: AZITHROMYCIN IVPB 500 MG/250 ML BAG IVPB SCH (10:42)
[2023-05-29] MEDS ORDERED: POLYETHYLENE GLYCOL (HEALTHYLAX) 3350 17 GM PACKET PO SCH (12:00)
[2023-05-29] MEDS ORDERED: SIMETHICONE 80 MG TAB.CHEW (FP) PO SCH (14:00)
== END 2023-05-29 14:00 | disposition home or self-care (01) | DRG 195 ==
LOC: JER 16:24 → JERBED 21:02 → INTOOBSV 21:02 → OBSVTOIN 05-27 14:05 → J8W 05-27 18:41
PROVIDERS: ADMIT Internal Medicine; ATTEND Family Medicine
DX: J10.00 Influenza due to other identified influenza virus with unspecified type of pneumonia (principal); K76.0 Fatty (change of) liver, not elsewhere classified; Z86.74 Personal history of sudden cardiac arrest; I45.10 Unspecified right bundle-branch block; E87.6 Hypokalemia; R74.01 Elevation of levels of liver transaminase levels; E83.42 Hypomagnesemia; R79.89 Other specified abnormal findings of blood chemistry; K59.00 Constipation, unspecified
CPT/HCPCS: 0241U-QW; 36415; 71045-TC-FY; 74177-TC; 76700-TC; 80053; 81003; 83605; 83735; 84100; 84484; 85025; 85027; 85610; 85730; 86705; 86707; 86708; 86709; 86850; 86900; 86901; 87040; 87086; 87340; 87350; 87517; 87522; 87899; 87902; 93005; 93010; 94640; 99285-25; G0378; J1644; Q9967

== ENCOUNTER 2023-08-22 13:27 | Emergency (ER) | payer OTHER ==
[2023-08-22 13:34] VITALS: BMI 26.2
[2023-08-22] MEDS ORDERED: ACETAMINOPHEN 1000 MG/100 ML BAG IVPB ONE (14:14)
[2023-08-22] MEDS ORDERED: ACETAMINOPHEN INJECTION 100 ML IVPB ONE (14:21)
[2023-08-22 14:54] LABS: BASO % 0.4 % (0-2.0); EOS % 4.4 % (0-4.5); HEMATOCRIT 40.3 % (32.4-45.2); HEMOGLOBIN 13.6 GM/dL (10.7-15.3); LYMPH % 28.8 % (8-40); MCH 29.2 pg (25.7-33.7); MCHC 33.8 g/dl (32.0-36.0); MEAN CELL VOLUME 86.3 fl (80-96); MEAN PLT VOLUME 8.1 fl (7.5-11.1); MONO % 10.1 % (3.8-10.2); NEUT % 56.3 % (42.8-82.8); PLATELET COUNT 307 10^3/uL (134-434); RBC 4.67 M/mm3 (3.60-5.2); RDW 13.7 % (11.6-15.6); WHITE BLOOD COUNT 6.1 K/mm3 (4.0-10.0)
[2023-08-22 15:21] LABS: POTASSIUM 3.8 mmol/L (3.5-5.1)
[2023-08-22 15:22] LABS: CALCIUM 9.1 mg/dL (8.5-10.1)
[2023-08-22 15:23] LABS: BLOOD UREA NITROGEN 10.2 mg/dL (7-18)
[2023-08-22 15:26] LABS: CREATININE 0.6 mg/dL (0.55-1.3)
[2023-08-22 15:27] LABS: BILIRUBIN,TOTAL 0.5 mg/dL (0.2-1); TOT PROT 8.2 g/dl (6.4-8.2)
[2023-08-22 17:20] VITALS: BP 118/66; PULSE 73; RESP 19; TEMP 98.1
== END 2023-08-22 18:36 | disposition home or self-care (01) ==
LOC: JER 13:27
PROC: 3E033NZ Introduction of Analgesics, Hypnotics, Sedatives into Peripheral Vein, Percutaneous Approach (ICD-10-PCS; principal; 2023-08-22)
DX: R07.89 Other chest pain (principal); R55 Syncope and collapse; R05.9 Cough, unspecified; R09.81 Nasal congestion; R42 Dizziness and giddiness; R06.02 Shortness of breath; M54.9 Dorsalgia, unspecified; Z20.822 Contact with and (suspected) exposure to COVID-19
CPT/HCPCS: 0241U-QW; 36415; 71046-TC-FY; 71275-TC; 80053; 84484; 85025; 93005; 93010; 99291; Q9967